=== PATIENT | female | born 1935 | race Caucasian/White ===

== ENCOUNTER 2018-11-18 13:36 | Inpatient (IN) | payer MEDICARE, BC ==
[~2018-11-18] VITALS: Ht 160 cm; Wt 41.3 kg
[2018-11-18] MEDS ORDERED: MAG HYDROX/AL HYDROX/SIMETH 30 ML UDC PO PRN (16:30)
[2018-11-18] MEDS ORDERED: ZOLPIDEM TARTRATE 5 MG TABLET PO PRN (16:30)
[2018-11-18] MEDS ORDERED: ACETAMINOPHEN 325 MG TABLET PO PRN (16:30)
[2018-11-18] MEDS ORDERED: MAGNESIUM HYDROXIDE 30 ML UDC PO PRN (16:30)
[2018-11-18] MEDS ORDERED: LORAZEPAM 0.5 MG TABLET PO PRN (16:30)
[2018-11-18 16:55] VITALS: BP 168/68
--- NOTE | 2018-11-18 17:30 | NUR ---
ADMISSION NOTES PATIENT DIRECT ADMIT, BROUGHT BY AMBULANCE. PATIENT A/O X1, ANXIOUS, YELLING IRRITABLE. PATIENT ON 5150 HOLD. PATIENT HAS NO ACUTE RESPIRATORY DISTRESS. BREATHING NONLABORED. ENCOURAGED PATIENT TO EXPRESS FEELINGS AND CONCERNS. SKIN ASSESSMENT DONE PICTURE TAKEN. V/S TAKEN BP-168/68, P-67, R-18, T-97.9, T-97.7. NEEDS ATTENDED AND ANTICIPATED. PATIENT INCONTINENT. USING DIAPER. BELONGING AND CONTRABAND CHECKED. DR HENRY AWARE OF NEW PATIENT AND MEDICATION. FAMILY NOTIFIED. CONTINUED MONITORING. ENDORSED ONCOMING NURSE FOR PLAN OF CARE.
--- NOTE | 2018-11-18 18:30 | NUR ---
GPS/RN PT'S SISTER FAMILIA SERNA [phone] NOTIFIED OF ADMISSION
[2018-11-18 20:00] VITALS: BP 119/74
[2018-11-19 08:00] VITALS: BP 160/91
--- NOTE | 2018-11-19 11:59 | NUR ---
Called Dr. Dotson for the neurology consult and left a message.
[2018-11-19] MEDS: clonazePAM 0.5 MG TABLET PO SCH ×2 (13:00→17:17)
[2018-11-19] MEDS: ENSURE ENLIVE 237 ML LIQUID (VANILLA) PO SCH ×2 (13:30→17:45)
[2018-11-19 16:00] VITALS: BP 158/74
[2018-11-19 20:09] VITALS: BP 130/61
[2018-11-20 08:00] VITALS: BP 113/75
[2018-11-20] MEDS: clonazePAM 0.5 MG TABLET PO SCH ×3 (08:13→16:30)
[2018-11-20] MEDS: ESCITALOPRAM OXALATE (10 MG) 10 MG TABLET PO SCH ×2 (08:32→09:00)
[2018-11-20] MEDS: ENSURE ENLIVE 237 ML LIQUID (VANILLA) PO SCH ×3 (09:00→16:40)
--- NOTE | 2018-11-20 12:03 | NUR ---
SW contacted pts sister Stephanie [phone] and informed her of pts hospitalization. Sister was not aware of the reason why pt was placed on a 5150 hold. SW read hold to sister and sister stated that she had no idea how gravely disabled pt was. Per sister, pt had refused all care from her and stated that she is unable to care for herself and needs SNF placement. Sister stated that she wants pt placed in the [facility] as sister has no car and lives in that area.
--- NOTE | 2018-11-20 13:04 | NUR ---
INITIAL DISCHARGE PLAN: Per pts sister Stephanie [phone] pt needs SNF placement as pt is unable to care for herself. SW will assist sister in finding placement in [place]. SW will help form a safe and proper discharge in collaboration with pts sister and .
--- NOTE | 2018-11-20 15:06 | NUR ---
RN-CO: Patient is depressed, easily irritated. Patient is refusing her medications and treatments.
[2018-11-20 16:00] VITALS: BP 133/60
--- NOTE | 2018-11-20 16:41 | NUR ---
RN-CO: Patient refused her 5pm medications and Ensure. Angry, patient stated " i can see the date on the ceiling, its December!" Doesn't want to be bothered.
[2018-11-21 08:00] VITALS: BP 156/65
[2018-11-21] MEDS: ESCITALOPRAM OXALATE (10 MG) 10 MG TABLET PO SCH (09:18)
[2018-11-21] MEDS: clonazePAM 0.5 MG TABLET PO SCH ×3 (09:18→17:05)
[2018-11-21] MEDS: ENSURE ENLIVE 237 ML LIQUID (VANILLA) PO SCH ×3 (09:21→17:06)
[2018-11-21] MEDS: TETRABENAZINE 12.5 MG PO SCH (13:30)
--- NOTE | 2018-11-21 14:53 | NUR ---
SW contacted pts sister Stephanie [phone] and discussed pts progress. SW informed sister that SW and psychiatrist were able to speak with pt on this present day and pt was able to communicate. SW also informed her that pt is eating and taking medication. 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 PETEY will continue to keep pts sister updated and assist with SNF placement in [place].
[2018-11-21 16:12] VITALS: BP 148/60
[2018-11-21 20:19] VITALS: BP 129/73
[2018-11-22 08:00] VITALS: BP 143/64
[2018-11-22] MEDS: clonazePAM 0.5 MG TABLET PO SCH ×3 (08:24→16:56)
[2018-11-22] MEDS: ESCITALOPRAM OXALATE (10 MG) 10 MG TABLET PO SCH (08:24)
[2018-11-22] MEDS: TETRABENAZINE 12.5 MG PO SCH (08:27)
[2018-11-22] MEDS: ENSURE ENLIVE 237 ML LIQUID (VANILLA) PO SCH ×3 (08:47→17:00)
--- NOTE | 2018-11-22 14:32 | NUR ---
PETEY faxed SNF referral to Bianca disability coordinator at [facility] Location: [address] [address] and to Glenis disability coordinator at [facility] Address: [address] [place] [phone] for review.
--- NOTE | 2018-11-22 15:29 | NUR ---
SW received a phone call from Bianca, coordinator of online programs at [facility] Location: [address] [place], [facility] stating facility does not have an appropriate bed or roommate for pt.
[2018-11-22 16:00] VITALS: BP 147/88
[2018-11-22 20:23] VITALS: BP 142/76
[2018-11-23 08:00] VITALS: BP 100/59
[2018-11-23] MEDS: TETRABENAZINE 12.5 MG PO SCH (09:00)
[2018-11-23] MEDS: ENSURE ENLIVE 237 ML LIQUID (VANILLA) PO SCH ×3 (09:00→17:58)
[2018-11-23] MEDS: ESCITALOPRAM OXALATE (10 MG) 10 MG TABLET PO SCH (10:29)
[2018-11-23] MEDS: clonazePAM 0.5 MG TABLET PO SCH ×3 (10:29→17:58)
--- NOTE | 2018-11-23 11:49 | NUR ---
SW received a call from Glenis, therapy site coordinator at [facility] Address: [address] , [place] [address] stating pt has been accepted to the facility.
--- NOTE | 2018-11-23 11:50 | NUR ---
PETEY contacted pts sister Stephanie [phone] and informed her pt has been accepted to [facility] and will be discharged tomorrow 09/24/19. Stephanie agreed with discharge plan.
[2018-11-23 16:04] VITALS: BP 124/56
[2018-11-23 20:00] VITALS: BP 121/61
[2018-11-24 08:00] VITALS: BP 138/68
[2018-11-24] MEDS: ENSURE ENLIVE 237 ML LIQUID (VANILLA) PO SCH ×2 (09:10→13:00)
[2018-11-24] MEDS: ESCITALOPRAM OXALATE (10 MG) 10 MG TABLET PO SCH (09:10)
[2018-11-24] MEDS: TETRABENAZINE 12.5 MG PO SCH (09:11)
[2018-11-24] MEDS: clonazePAM 0.5 MG TABLET PO SCH ×2 (09:12→13:00)
--- NOTE | 2018-11-24 13:15 | NUR ---
GPS/RN PT DISCHARGED TO [facility] . REPORT GIVEN TO ELAINE LEE. NO ACUTE DISTRESS. VSS. NO SI TOR HI AT THE TIME OF DISCHARGE. REFUSED PICTURES AND UNABLE TO SIGN. PROPERTY RETURNED AND VALUABLES FROM THE SAFE GIVEN TO AMBULANCE IN [place].
--- NOTE | 2018-11-24 13:44 | NUR ---
DISCHARGE NOTE: Pt was discharged at 1:30pm via [facility] ambulance trip #[id number] to [facility] Address: [address] [place] [id number] . Pts sister Stephanie [phone] has been notified and agreed with discharge plan. Pts mood was anxious with congruent affect. Pt denied suicidal/homicidal ideations and denied visual/auditory hallucinations. Pt will be under the care of Psychiatrist: Dr. Malik Cavazos [address] [facility] [address], [place] [address] [phone] and Web Services Manager: Dr. Jose Brower [address] [facility] [address] [address] . The multidisciplinary exitcare form was done, printed, signed, and given to the patient.
== END 2018-11-24 13:30 | DRG 881 ==
LOC: GPS 15:38
PROVIDERS: ADMIT Psychiatry & Neurology Psychiatry; ATTEND Psychiatry & Neurology Psychiatry
DX: F32.9 Major depressive disorder, single episode, unspecified (principal); G10 Huntington's disease; Z68.1 Body mass index [BMI] 19.9 or less, adult; E44.1 Mild protein-calorie malnutrition; F29 Unspecified psychosis not due to a substance or known physiological condition; F43.23 Adjustment disorder with mixed anxiety and depressed mood
CPT/HCPCS: 97530-TC